=== PATIENT | female | born 2005 | race Caucasian/White ===

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

== ENCOUNTER 2024-11-05 19:28 | Emergency (ER) | payer OTHER, SELFPAY ==
--- OUTSIDE RECORDS SUMMARY | 2024-11-05 19:30 | XMS_ITS | Continuity of Care Document ---
Author Organization [facility]. If a dditional information is needed, contact Health Information Management at [phone] [place] [address] Phone Care Team Providers Care Primary Substance Abuse Counselor Name Role Phone Unavailable Unavailable Unavailable Unavailable Unavailable Unavailable Unavailable Unavailable Unavailable Problems Generalized abdominal pain Onset:21-Mar-2023 Comments:Onset Date: [id number] Abdominal pain Onset:18-Mar-2023 [id number] Allergies and Adverse Reactions ibuprofen(Allergy) Onset: 18-Mar-2023 Reaction:HIVES Social History Smoking Status Never smoked tobacco Recorded: 18-Mar-2023
--- OUTSIDE RECORDS SUMMARY | 2024-11-05 19:30 | XMS_ITS | Referral Summary ---
Author Organization [facility] osp[facility] Address [address] [place] [address] Care Team Providers Care Plasma Cutting Machine Operator Name Role Phone Isabella Peace NP Primary Care Provider [phone] Aleyda Hubbard [facility] Unavailable [phone] Encounters Date Type Department Care Team Description 09/28/2024 Plan of Care Documentation [facility] [place] [id number] 09/28/2024 1:00 PM CDT Therapy [facility] [place] [address] Alex Mcgowan, SHERLY Acute bilateral low back pain with left-sided sciatica 09/28/2024 11:00 AM CDT Office Visit [facility] [address] [place] [address] Ila Haynes DO Encounter for annual routine gynecological examination (Primary Dx); Need for HPV vaccination; Encounter for counseling regarding contraception 09/15/2024 Orders Only [facility] Primary Care at [address] [place] [id number] Isabella Peace NP Acute bilateral low back pain with left-sided sciatica (Primary Dx) 09/14/2024 Orders Only [facility] Primary Care at [address] [place] [phone] Isabella Peace, JUAN M Acute bilateral low back pain with left-sided sciatica (Primary Dx) 09/14/2024 10:00 AM CAN MAKER Office Visit [facility] at [address] [place] [address] Isabella Peace NP Generalized anxiety disorder (Primary Dx); Mild episode of recurrent major depressive disorder; Acute bilateral low back pain with left-sided sciatica 08/12/2024 9:30 AM CAN MAKER Office Visit [facility] at [address] [place] [address] Isabella Peace NP Generalized anxiety disorder (Primary Dx); Mild episode of recurrent major depressive disorder; Migraine without aura and without status migrainosus, not intractable from Last 3 Months Allergies Active Allergy Reactions Criticality Noted Date Comments Ibuprofen Hives Medium 07/23/2019 Pt mom states Ibuprofen 800mg+ causes hives. Lactose Nausea only Low 05/26/2023 Medications ondansetron ODT (ZOFRAN-ODT) 4 mg disintegrating tabletIndications: Nausea and vomiting, unspecified vomiting type DISSOLVE ONE TABLET ON TONGUE IN MOUTH EVERY 8 HOURS NEEDED FOR NAUSEA OR VOMITING 21 tablet 1 10/21/19 24 Active Additional Information Patient not taking.Reported on 09/28/2024 cholecalciferol (VITAMIN D-3) 5,000 unit tablet Take 1 tablet (5,000 Units total) by mouth daily Active medroxyPROGESTERon e 150 mg/mL injection INJECT 1 ML INTO THE MUSCLE INSTRUCTED EVERY THREE MONTHS 1 mL 2 05/20/20 24 Active cyclobenzaprine (FLEXERIL) 5 mg tabletIndications: Acute bilateral low back pain with left-sided sciatica Take 1 tablet (5 mg total) by mouth nightly as needed for muscle spasms (back pain) 30 tablet 09/15/19 25 Active Additional Information Patient not taking.Reported on 09/28/[address] (CYMBALTA) 30 mg capsuleIndications :Generalized anxiety disorder,Mild episode of recurrent major depressive disorder Take 1 capsule (30 mg total) by mouth daily 60 capsule 09/15/19 25 Active Additional Information Patient not taking.Reported on 09/28/2024 medroxyPROGESTERon e (DEPO-PROVERA) 150 mg/mL injection Inject 1 mL (150 mg total) into the muscle as instructed every 3 (three) months 1 mL 3 09/29/19 Active rizatriptan (MAXALT) 10 mg tabletIndications: Migraine without aura and without status migrainosus, not intractable TAKE ONE TABLET BY MOUTH ONCE DAILY NEEDED FOR MIGRAINE, MAY REPEAT IN 2 HOURS IF UNRESOLVED. DO NOT EXCEED 3 TABLETS (30 MG) IN 24 HOURS 30 tablet 1 10/05/19 Active rizatriptan (MAXALT) 10 mg tabletIndications: Migraine Take 1 tablet (10 mg total) by mouth once as needed for migraine May repeat in 2 hours if unresolved. Do not exceed 30 mg in 24 hours. 30 tablet 10/05/19 Active Active Problems Problem Noted Date Diagnosed Date Acute bilateral low back pain with left-sided sc iatica 09/14/2024 Assessment & Plan (09/14/2024 10:42 AM CAN MAKER): -Acute, new -Start on Flexeril 5 mg nightly as needed -May take over the counter ibuprofen 200 mg 2-3 tablets 3 times daily as needed for pain and tylenol 500 mg 2 tablets 3 times daily as needed for pain -Recommend stretching exercises -Referral sent to physical therapy -If this worsens or does not improve, will order x-rays -Follow up in 6 weeks or sooner as needed BMI 21.0-21.9, adult 12/21/2023 Assessment & Plan (12/21/2023 11:10 AM CDT): Wt Readings from Last 3 Encounters: 12/21/23 61.7 kg (136 lb 1.6 oz) (65%, Z= 0.39)* 11/24/23 63 kg (139 lb) (69%, Z= 0.51)* 11/06/23 64 kg (141 lb) (72%, Z= 0.59)* * Growth percentiles are based on CDC (Girls, 2-20 Years) data. Body mass index is 21.31 kg/m . -Stable, at goal of <30 bmi -Discussed recommendations for exercise at least 30 minutes moderate to vigorous exercise as tolerated most days of the week. (minimum 150 minutes weekly) -Discussed importance of well-balanced diet. Vitamin D deficiency 11/06/2023 Assessment & Plan (11/06/2023 2:09 PM CDT): -chronic, stable -Discussed/ordered labs -continue on vitamin D3 5000 units daily Nausea and vomiting 05/26/2023 Assessment & Plan (07/10/2023 12:47 PM CAN MAKER): -improving, but not at goal- patient reports she is still nauseous -possibly related to sertraline. Stop sertraline 50 mg daily and start escitalopram 5 mg daily for depression and anxiety -recommend patient follow up with GI -continue on Zofran 4 mg daily as needed Assessment & Plan (05/26/2023 1:01 PM CAN MAKER): For the past 3 weeks with waking up feeling nauseated with decreased appetite, constant throughout the day, lost about 5-10 lbs over the past 3 weeks ago due to not being to eat. Takes zofran as needed which helps No reflux or heartburn, no dysphagia or odynophagia New constipation as well with straining and hard stools. not currently taking anything. Feels like after bm, nausea gets better Difficulty sleeping Takes ibuprofen as needed No known family history of colon cancer, liver disease, inflammatory bowel disease, or other GI pathologies Occasional marijuana use, vapes, no ETOH use Labs from 05/25/2023 showed mildly decreased potassium 3.1, total protein 6.3, TSH low 0.27 with normal free T4, normal CBC had pelvic US that was normal. No abdominal imaging or prior endoscopies Plan Given concurrent significant weight loss, will schedule EGD to evaluate for PUD, gastritis, esophagitis, EoE. If all normal then could have functional disease such as Gp, functional n/v, centrally mediated n/v, psychogenic, or cannabinoid hyperemesis syndrome. Constipation might also contribute to her symptoms if she is chronically backed up with stool Start metamucil daily for constipation, if no relief then add miralax Continue zofran as needed Abnormal weight loss 05/26/2023 Assessment & Plan (05/26/2023 12:57 PM CAN MAKER): Lost about 5-10 lb over the past 3 weeks due to decreased appetite and nausea vomiting. We will plan for EGD for further evaluation of peptic ulcer disease gastritis, esophagitis. If all negative then could have possible functional disease such as gastroparesis or cannabinoid hyperemesis Hypokalemia 05/26/2023 Assessment & Plan (08/26/2023 12:00 PM CAN MAKER): -improving, but not at goal -repeat potassium level in 1 week Assessment & Plan (05/26/2023 1:03 PM CAN MAKER): Likely from dehydration and decreased oral intake, supplement per ordering physician Generalized abdominal pain 03/18/2023 Overview (12/21/2023): Onset Date: [id number] Bilateral lower abdominal cramping 01/29/2023 Assessment & Plan (01/29/2023 4:34 AM CDT): Acute problem- new problem with onset about 4 weeks Has been taken off control and implant removed- this is apprenticeship representative of menstrual cramping second to patient not having return of her menses post nexplanon implant removal. Recommend heating pad at low setting prn Follow up with per diem clerk if cramping worsens Migraine without aura and wi thout status migrainosus, not intractable 01/27/2023 Assessment & Plan (08/12/2024 10:09 AM CAN MAKER): -chronic, stable -continue on rizatriptan 10 mg once as needed for migraines -continue seeing Neurology Discussed avoiding all caffeine: no soda, tea, coffee, chocolate; no wine; no sharp cheeses; no processed meats like hot dogs or bologna; no MSG as found in turkish food; no more than 1/2 banana a day; no artificial sweeteners; fresh bread (less than 24 hours old) Avoid using excedrin, tylenol, ibuprofen or aleve more than twice a week or else you can cause medication overuse/rebound headaches. You may be causing the headaches with the medications you are taking to get rid of them. Be sure to push lots of water as dehydration is a big cause of headaches. Assessment & Plan (12/21/2023 11:36 AM CDT): -chronic, stable -patient currently takes rizatriptan as needed -patient reports having a couple of migraine headache monthly -today patient reporting she is not currently experiencing a headache -encourage patient to use p.r.n. migraine medication if needs so -refill of rizatriptan provided -continue current therapy Assessment & Plan (11/06/2023 7:22 AM CDT): -chronic, stable -continue on rizatriptan 10 mg once as needed for migraines -continue seeing Neurology Discussed avoiding all caffeine: no soda, tea, coffee, chocolate; no wine; no sharp cheeses; no processed meats like hot dogs or bologna; no MSG as found in turkish food; no more than 1/2 banana a day; no artificial sweeteners; fresh bread (less than 24 hours old) Avoid using excedrin, tylenol, ibuprofen or aleve more than twice a week or else you can cause medication overuse/rebound headaches. You may be causing the headaches with the medications you are taking to get rid of them. Be sure to push lots of water as dehydration is a big cause of headaches. Assessment & Plan (07/10/2023 12:47 PM CAN MAKER): -chronic, stable -continue on rizatriptan 10 mg once as needed for migraines -continue seeing Neurology Discussed avoiding all caffeine: no soda, tea, coffee, chocolate; no wine; no sharp cheeses; no processed meats like hot dogs or bologna; no MSG as found in turkish food; no more than 1/2 banana a day; no artificial sweeteners; fresh bread (less than 24 hours old) Avoid using excedrin, tylenol, ibuprofen or aleve more than twice a week or else you can cause medication overuse/rebound headaches. You may be causing the headaches with the medications you are taking to get rid of them. Be sure to push lots of water as dehydration is a big cause of headaches. Assessment & Plan (02/27/2023 11:19 AM CDT): -chronic, improving -continue on rizatriptan 10 mg once as needed for migraines -advised patient to keep appointment to establish care with Neurology on 03/26/2023 Discussed avoiding all caffeine: no soda, tea, coffee, chocolate; no wine; no sharp cheeses; no processed meats like hot dogs or bologna; no MSG as found in turkish food; no more than 1/2 banana a day; no artificial sweeteners; fresh bread (less than 24 hours old) Avoid using excedrin, tylenol, ibuprofen or aleve more than twice a week or else you can cause medication overuse/rebound headaches. You may be causing the headaches with the medications you are taking to get rid of them. Be sure to push lots of water as dehydration is a big cause of headaches. Assessment & Plan (01/30/2023 11:00 AM CDT): -chronic, improving -continue on rizatriptan 10 mg once as needed for migraines -referral placed to Dr. Miller [facility] -follow up in 4 weeks Assessment & Plan (01/29/2023 4:26 AM CDT): Acute problem- new problem with onset of 2 weeks, worsening over last week Trial Rizatriptan 10 mg 1 tablet at onset of headache, may repeat in 2 hours if no improvement- do not exceed 30 mg in 24 hour period Discussed avoiding all caffeine: no soda, tea, coffee, chocolate; no wine; no sharp cheeses; no processed meats like hot dogs or bologna; no MSG as found in turkish food; no more than 1/2 banana a day; no artificial sweeteners; fresh bread (less than 24 hours old) Avoid using tylenol, ibuprofen or aleve more than twice a week or else you can cause medication overuse/rebound headaches. You may be causing the headaches with the medications you are taking to get rid of them. Be sure to push lots of water as dehydration is a big cause of headaches. Contraceptive management 11/17/2022 Assessment & Plan (11/24/2023 12:22 PM CDT): Highly encouraged patient to continue supplementing calcium and vitamin-D daily. Patient aware long-term use of Depo-Provera not recommended. Patient may need to have DEXA scans on a routine basis to monitor bone mineral density. Patient verbalizes all understanding and wishes to proceed with Depo-Provera as her control method. - Refill on Depo Provera sent to pharmacy. Patient to RTC for next injection due 12/14/23 - 12/28/23. Assessment & Plan (07/08/2023 3:17 PM CAN MAKER): Counseling and education given on Depo-Provera including risks and side effects. Informed patient that Depo-Provera has been associated with a decrease in bone mineral mass known as osteopenia. Highly encouraged patient to supplement diet with calcium and vitamin-D daily - list of [id number] calcium supplements given. Patient should try to eat a diet that contains calcium rich foods. Patient aware long-term use of Depo-Provera not recommended. Patient may need to have DEXA scans on a routine basis to monitor bone mineral density. Patient verbalizes all understanding and wishes to proceed with Depo-Provera as her control method. - Plan to restart Depo-Provera. She can return this week for nurse visit to receive first injection. If unable to RTC this week, will have to wait for next menses. - Patient aware I will prescribe for up to 1 year then will have to discuss other control method or possibility of having DEXA scan to check bone mineral density at that time. Assessment & Plan (06/09/2023 1:32 PM CAN MAKER): Discussed options such as coming off hormonal contraception x 3-4 months to see if sxs of nausea, hot flashes, increased pelvic pain/cramping can be directly associated with BCM. Can also try a lower dose combined contraceptive method such as Lo Loestrin or the Nuva Ring. Can consider progestin only method as well. After a lengthy discussion, patient desires to try a progestin only pill - samples x 2 of Slynd given w/ usage instructions. Assessment & Plan (02/26/2023 12:27 PM CDT): Plan to start low dose JANKI for cycle management and BCM. Will try a 20 mcg pill to see if less nausea noted - encouraged to take at night or eat with dose if experiences nausea. Allow 3-4 months for cycle regulation. BUM x 1 month for effective BCM. Assessment & Plan (11/17/2022 11:45 AM CDT): Discussed multiple methods including pills, patch, and Nexplanon. She would like to try the combination patch. Risks, benefits, warning signs, and proper use reviewed. She will call with any questions or concerns. Mild episode of recurrent major depressive disor nelson 11/03/2022 Overview (12/21/2023): patient has tried Prozac (unknown why she stopped it), sertraline (which cause nausea), Lamictal, and buspirone in the past. Patient did not tolerate buspirone. Assessment & Plan (09/14/2024 10:41 AM CAN MAKER): -chronic, improving, but not at goal Patient has tried the following medications in the past and was unable to tolerate them: -Lexapro blunted her options -Prozac made her cry easily -Sertraline caused nausea -Lamictal (unknown why this was stopped) -Buspirone caused heart racing, shaking, confusion, and made her feel overwhelmed -Venlafaxine did not help with her anxiety -Increase to duloxetine DR 30 mg daily. -Follow up in 6 weeks or sooner as needed Patient reiterated no suicidal thoughts at this time; take medication as directed; contact 911 and go to the ER if becomes suicidal; discussed side effects of medication with patient; encouraged healthy diet and exericise; encouraged patient to see a counselor Assessment & Plan (08/12/2024 10:09 AM CAN MAKER): -chronic, not at goal Patient has tried the following medications in the past and was unable to tolerate them: -Lexapro blunted her options -Prozac made her cry easily -Sertraline caused nausea -Lamictal (unknown why this was stopped) -Buspirone caused heart racing, shaking, confusion, and made her feel overwhelmed -stop venlafaxine XR 37.5 mg daily -start on duloxetine DR 20 mg daily. Advised patient we will likely need to increase this dosage, however given her reaction to medications in the past, a low dose was started -Follow up in 4 weeks or sooner as needed Patient reiterated no suicidal thoughts at this time; take medication as directed; contact 911 and go to the ER if becomes suicidal; discussed side effects of medication with patient; encouraged healthy diet and exericise; encouraged patient to see a counselor Assessment & Plan (12/21/2023 11:32 AM CDT): -chronic, improved -patient currently takes Effexor 37.5 mg -previously unable to tolerate Lexapro, Prozac, Lamictal, BuSpar, sertraline -patient reports since starting the Effexor she is feeling much better and states she believes she has on an appropriate dose at this time -patient denies any worsening of depressed mood, thoughts of harming herself or others, or worsening anxiety -refill of Effexor -continue current therapy Assessment & Plan (11/06/2023 2:08 PM CDT): -chronic, not at goal- Lexapro has been blunting her emotions and making her feel on edge -patient has tried Prozac (unknown why she stopped it), sertraline (which cause nausea), Lamictal, and buspirone in the past. Patient did not tolerate buspirone. -stop escitalopram 5 mg daily. -start on fluoxetine 10 mg daily. Discussed with patient if this medication does not help, we will try medication from the SNRI drug class -recommend using a light therapy sun lamp to use during the winter time to help with her depression Patient reiterated no suicidal thoughts at this time; take medication as directed; contact 911 and go to the ER if becomes suicidal; discussed side effects of medication with patient; encouraged healthy diet and exericise; encouraged patient to see a counselor Assessment & Plan (08/26/2023 12:00 PM CAN MAKER): -chronic, improving -patient has tried Prozac (unknown why she stopped it), sertraline (which cause nausea), Lamictal, and buspirone in the past. Patient did not tolerate buspirone. -continue escitalopram 5 mg daily. -recommend using a light therapy sun lamp to use during the winter time to help with her depression -follow up in 3 months or sooner as needed Patient reiterated no suicidal thoughts at this time; take medication as directed; contact 911 and go to the ER if becomes suicidal; discussed side effects of medication with patient; encouraged healthy diet and exericise; encouraged patient to see a counselor Assessment & Plan (07/10/2023 12:46 PM CAN MAKER): Patient reiterated no suicidal thoughts at this time; take medication as directed; contact 911 and go to the ER if becomes suicidal; discussed side effects of medication with patient; encouraged healthy diet and exericise; encouraged patient to see a counselor -chronic, not at/near goal -patient has tried Prozac (unknown why she stopped it), sertraline (which cause nausea), Lamictal, and buspirone in the past. Patient did not tolerate buspirone. -stop sertraline 50 mg daily. Since patient has not been taking this regularly and she was on a low dose, we do not need a wean off it. -start escitalopram 5 mg daily. -recommend patient purchase a light therapy sun lamp to use during the winter time to help with her depression -follow up in 4 weeks or sooner as needed Assessment & Plan (02/27/2023 11:19 AM CDT): Patient reiterated no suicidal thoughts at this time; take medication as directed; contact 911 and go to the ER if becomes suicidal; discussed side effects of medication with patient; encouraged healthy diet and exericise; encouraged patient to see a counselor -chronic, improving -patient has tried Prozac, sertraline, Lamictal, and buspirone in the past. Patient did not tolerate buspirone. -continue on sertraline 50 mg daily. Patient would like to stay on this dosage for now. -recommend staying off social media that increases her anxiety -follow up in 2 weeks or sooner as needed Assessment & Plan (01/30/2023 10:59 AM CDT): Patient reiterated no suicidal thoughts at this time; take medication as directed; contact 911 and go to the ER if becomes suicidal; discussed side effects of medication with patient; encouraged healthy diet and exericise; encouraged patient to see a counselor -chronic, improving, but not at goal -patient has tried Prozac, sertraline, Lamictal, and buspirone in the past. Patient did not tolerate buspirone -increase to sertraline 50 mg daily -stop buspirone. -recommend seeing a counselor. -recommend staying off social media that causes anxiety -follow up in 4 weeks Assessment & Plan (01/29/2023 4:29 AM CDT): Chronic problem- controlled with current regimen Continue sertraline 25 mg daily Stopped Buspirone-did not like the way it made her feel Patient reiterated no suicidal thoughts at this time; take medication as directed; contact 911 and go to the ER if becomes suicidal; discussed side effects of medication with patient; encouraged healthy diet and exericise; encouraged patient to see a counselor Assessment & Plan (12/18/2022 11:27 AM CDT): Patient reiterated no suicidal thoughts at this time; take medication as directed; contact 911 and go to the ER if becomes suicidal; discussed side effects of medication with patient; encouraged healthy diet and exericise; encouraged patient to see a counselor HPI: Condition is not at/near goal -Patient has tried Prozac, sertraline, and Lamictal in the past. Reports the sertraline was seen most helpful. -patient reports having a good family support system A&P: Discussed/ordered labs, encouraged healthy, low carbohydrate lifestyle and at least 150min/week of exercise. -start on sertraline 25 mg daily and buspirone 5 mg 2 times daily as needed for anxiety -recommend patient see a counselor. Patient reports she can talk with her breakdown mill operator Vinod for counseling. -recommend staying off social media that causes increased anxiety, such snapchat and tictok -follow up in 6 weeks Assessment & Plan (11/03/2022 11:25 AM CDT): Patient reiterated no suicidal thoughts at this time; take medication as directed; contact 911 and go to the ER if becomes suicidal; encouraged healthy diet and exericise; encouraged patient to see a counselor HPI: Condition is at goal Patient used to take Lamictal and sertraline, but she weaned herself off of these and is doing well. A&P: Discussed/ordered labs, encouraged healthy, low carbohydrate lifestyle and at least 150min/week of exercise. Generalized anxiety disorder 11/03/2022 Assessment & Plan (09/14/2024 10:41 AM CAN MAKER): -chronic, improving, but not at goal Patient has tried the following medications in the past and was unable to tolerate them: -Lexapro blunted her options -Prozac made her cry easily -Sertraline caused nausea -Lamictal (unknown why this was stopped) -Buspirone caused heart racing, shaking, confusion, and made her feel overwhelmed -Venlafaxine did not help with her anxiety -Increase to duloxetine DR 30 mg daily. -Follow up in 6 weeks or sooner as needed Patient reiterated no suicidal thoughts at this time; take medication as directed; contact 911 and go to the ER if becomes suicidal; discussed side effects of medication with patient; encouraged healthy diet and exericise; encouraged patient to see a counselor Assessment & Plan (08/12/2024 10:09 AM CAN MAKER): -chronic, not at goal Patient has tried the following medications in the past and was unable to tolerate them: -Lexapro blunted her options -Prozac made her cry easily -Sertraline caused nausea -Lamictal (unknown why this was stopped) -Buspirone caused heart racing, shaking, confusion, and made her feel overwhelmed -stop venlafaxine XR 37.5 mg daily -start on duloxetine DR 20 mg daily. Advised patient we will likely need to increase this dosage, however given her reaction to medications in the past, a low dose was started -Follow up in 4 weeks or sooner as needed Patient reiterated no suicidal thoughts at this time; take medication as directed; contact 911 and go to the ER if becomes suicidal; discussed side effects of medication with patient; encouraged healthy diet and exericise; encouraged patient to see a counselor Assessment & Plan (12/21/2023 11:32 AM CDT): -chronic, improved -patient currently takes Effexor 37.5 mg -previously unable to tolerate Lexapro, Prozac, Lamictal, BuSpar, sertraline -patient reports since starting the Effexor she is feeling much better and states she believes she has on an appropriate dose at this time -patient denies any worsening of depressed mood, thoughts of harming herself or others, or worsening anxiety -refill of Effexor -continue current therapy Assessment & Plan (11/06/2023 2:08 PM CDT): -chronic, not at goal- Lexapro has been blunting her emotions and making her feel on edge -patient has tried Prozac (unknown why she stopped it), sertraline (which cause nausea), Lamictal, and buspirone in the past. Patient did not tolerate buspirone. -stop escitalopram 5 mg daily. -start on fluoxetine 10 mg daily. Discussed with patient if this medication does not help, we will try medication from the SNRI drug class -recommend using a light therapy sun lamp to use during the winter time to help with her depression Patient reiterated no suicidal thoughts at this time; take medication as directed; contact 911 and go to the ER if becomes suicidal; discussed side effects of medication with patient; encouraged healthy diet and exericise; encouraged patient to see a counselor Assessment & Plan (08/26/2023 11:59 AM CAN MAKER): -chronic, improving -patient has tried Prozac (unknown why she stopped it), sertraline (which cause nausea), Lamictal, and buspirone in the past. Patient did not tolerate buspirone. -continue escitalopram 5 mg daily. -recommend using a light therapy sun lamp to use during the winter time to help with her depression -follow up in 3 months or sooner as needed Patient reiterated no suicidal thoughts at this time; take medication as directed; contact 911 and go to the ER if becomes suicidal; discussed side effects of medication with patient; encouraged healthy diet and exericise; encouraged patient to see a counselor Assessment & Plan (07/10/2023 12:45 PM CAN MAKER): Patient reiterated no suicidal thoughts at this time; take medication as directed; contact 911 and go to the ER if becomes suicidal; discussed side effects of medication with patient; encouraged healthy diet and exericise; encouraged patient to see a counselor -chronic, not at/near goal -patient has tried Prozac (unknown why she stopped it), sertraline (which cause nausea), Lamictal, and buspirone in the past. Patient did not tolerate buspirone. -stop sertraline 50 mg daily. Since patient has not been taking this regularly and she was on a low dose, we do not need a wean off it. -start escitalopram 5 mg daily. -recommend patient purchase a light therapy sun lamp to use during the winter time to help with her depression -follow up in 4 weeks or sooner as needed Assessment & Plan (02/27/2023 11:18 AM CDT): Patient reiterated no suicidal thoughts at this time; take medication as directed; contact 911 and go to the ER if becomes suicidal; discussed side effects of medication with patient; encouraged healthy diet and exericise; encouraged patient to see a counselor -chronic, improving -patient has tried Prozac, sertraline, Lamictal, and buspirone in the past. Patient did not tolerate buspirone. -continue on sertraline 50 mg daily. Patient would like to stay on this dosage for now. -recommend staying off social media that increases her anxiety -follow up in 2 weeks or sooner as needed Assessment & Plan (01/30/2023 10:58 AM CDT): Patient reiterated no suicidal thoughts at this time; take medication as directed; contact 911 and go to the ER if becomes suicidal; discussed side effects of medication with patient; encouraged healthy diet and exericise; encouraged patient to see a counselor -chronic, improving, but not at goal -patient has tried Prozac, sertraline, Lamictal, and buspirone in the past. Patient did not tolerate buspirone -increase to sertraline 50 mg daily -stop buspirone. -recommend seeing a counselor. -recommend staying off social media that causes anxiety -follow up in 4 weeks Assessment & Plan (12/18/2022 11:27 AM CDT): Patient reiterated no suicidal thoughts at this time; take medication as directed; contact 911 and go to the ER if becomes suicidal; discussed side effects of medication with patient; encouraged healthy diet and exericise; encouraged patient to see a counselor HPI: Condition is not at/near goal -Patient has tried Prozac, sertraline, and Lamictal in the past. Reports the sertraline has been the most helpful. -patient reports having a good family support system A&P: Discussed/ordered labs, encouraged healthy, low carbohydrate lifestyle and at least 150min/week of exercise. -start on sertraline 25 mg daily and buspirone 5 mg 2 times daily as needed for anxiety -recommend patient see a counselor. Patient reports she can talk with her breakdown mill operator Vinod for counseling. -recommend staying off social media that causes increased anxiety, such snapchat and tictok -follow up in 6 weeks Assessment & Plan (11/03/2022 11:25 AM CDT): Patient reiterated no suicidal thoughts at this time; take medication as directed; contact 911 and go to the ER if becomes suicidal; encouraged healthy diet and exericise; encouraged patient to see a counselor HPI: Condition is at goal Patient used to take Lamictal and sertraline, but she weaned herself off of these and is doing well. A&P: Discussed/ordered labs, encouraged healthy, low carbohydrate lifestyle and at least 150min/week of exercise. Vapes nicotine containing substance 11/03/2022 Assessment & Plan (11/06/2023 7:22 AM CDT): Recommend cessation of vaping Assessment & Plan (01/30/2023 7:04 AM CDT): Recommend cessation of vaping Assessment & Plan (01/29/2023 4:30 AM CDT): Chronic problem Encouraged cessation of vaping- we discussed cessation of vaping/nicotine for 3 minutes. Patient aware of risks with continued use Assessment & Plan (12/18/2022 7:09 AM CDT): Recommend cessation of vaping Assessment & Plan (11/03/2022 11:28 AM CDT): Patient aware of risks of nicotine. Patient does not have interest in quitting at this time. Recommend cessation of vaping. Marijuana use 11/03/2022 Assessment & Plan (01/30/2023 7:04 AM CDT): Recommended cessation of smoking marijuana Assessment & Plan (12/18/2022 7:09 AM CDT): Recommended cessation of smoking marijuana Assessment & Plan (11/03/2022 11:29 AM CDT): Patient aware of risks of marijuana use Patient does not have interest in quitting at this time Recommend cessation of smoking marijuana. Resolved Problems Problem Noted Date Diagnosed Date Resolved Date Encounter for surveillance o f transdermal patch hormonal contraceptive device 02/26/202302/10 BMI 26.0-26.9,adult 12/18/2022 12/19/19 23 Assessment & Plan (12/18/2022 7:09 AM CDT): HPI: Condition is stable goal BMI <30 A&P: Healthy, high-protein, lower carbohydrate, lower fat lifestyle and exercise for 150min/week recommended Immunizations Immunization Administration Dates Next Due DTaP / HiB / IPV 2004 DTaP 5 Pertussis 07/31/2009,02/06/2005, 5 HPV, Quadrivalent 01/22/2016,09/19/2015,01/03/20 15 HPV9 09/28/2024 Hep A, Pediatric 08/08/2011,08/09/2010 Hep B, Adolescent or Pediatric 02/06/2005,2004,2004 Hib (PRP-T) 11/17/2005,02/06/2005,2004 IPV 07/31/2009,02/06/2005,2004 Influenza, Quadrivalent, Spl it, Intramuscular 05/09/2019 Influenza, Quadrivalent, Spl it, Preservative Free, Intramuscular 07/10/2023,05/27/2021,05/14/2017,03/28,03/28/2015,04/13/2014 Influenza, Trivalent, Preser vative Free, Intramuscular 04/29/2013,04/19/2012,04/21/2011 Influenza, Unspecified 10/10/2022(Deferred: Natasha ent Refused) MMR 08/04/2005 MMRV 07/31/2009 Meningococcal B, Recombinant (Trumenba) 01/18/2021 Meningococcal MCV4P (Menactra) 01/18/2021,2015 Pneumococcal Conjugate PCV 13 11/17/2005 ,02/06/2005,2004,09/19 Tdap 01/22/2016 Varicella 03/08/2008 Social History Tobacco Use Types Packs/Day Years Used Date Smoking Tobacco: Some Days Vaping Started: 07/2021 Smokeless Tobacco: Never Tobacco Cessation:Ready to Q uit: Not Asked; Counseling Given: Not Answered Alcohol Use Standard Drinks/Week Comments No 0 (1 standard drink = 0.6 oz pur e alcohol) Humiliation, Afraid, Rape, and Kick questionnair e Answer Date Recorded Within the last year, have y ou been afraid of your partner or ex-partner? No 11/17/2022 Within the last year, have y ou been humiliated or emotionally abused in other ways by your partner or ex-partner? No Within the last year, have y ou been kicked, hit, slapped, or otherwise physically hurt by your partner or ex-partner? No 11/17/2022 Within the last year, have y ou been raped or forced to have any kind of sexual activity by your partner or ex-partner? No 11/17/2022 AUDIT-C Answer Date Recorded Q1: How often do you have a drink containing alcohol? Never 09/14/2024 Q2: How many drinks containi ng alcohol do you have on a typical day when you are drinking? Patient does not drink Q3: How often do you have si x or more drinks on one occasion? Never 09/14/2024 PHQ-2 Answer Date Recorded PHQ-2 Total Score (If total score is 3 or more points, staff should administer the PHQ-9) 1 09/14/2024 Personal Safety Answer Date Recorded Have you ever been in or are you currently in a harmful physical or emotional relationship or is someone making you feel afraid or unsafe? Denies 06/22/2023 Comments No Sex and Gender Information Value Date Recorded Sex Assigned at Not on file Legal Sex Female 7:40 PM CAN MAKER Gender Identity Not on file Sexual Orientation Not on file Occupation Industry Job Start Date Job End Date Not on file Not on file Not on file Not on file Last Filed Vital Signs Vital Sign Reading Time Taken Comments Blood Pressure 108/60 09/28/2024 10:58 AM CDT Pulse 74 09/14/2024 9:43 AM CAN MAKER Temperature 36.5 C (97.7 F) 09/14/2024 9:43 AM CAN MAKER Respiratory Rate 14 09/14/2024 9:43 AM CAN MAKER Oxygen Saturation 99% 09/14/2024 9:43 AM CAN MAKER Inhaled Oxygen Concentration - - Weight 53.1 kg (117 lb) 09/28/2024 10:58 AM CDT Height 170.2 cm (5' 7 ) 09/28/2024 10:58 AM CDT Body Mass Index 18.32 09/28/2024 10:58 AM CDT Plan of Treatment Not on file Procedures Procedure Name Priority Date/Time Associated Diagnosis Comments N. GONORRHOEAE/C. TRACHOMATIS AMPLIFICATION Routine 11/24/2023 11:30 AM CDT from Last 3 Months or Most Recently Relevant to Health Maintenance Results * N. gonorrhoeae/C. trachomatis Amplification Urine (11/24/2023 11:30 AM CDT) C. trachomatis Not Detected [facility] Comment:Testing performed by : [facility], [address] [place]., [address] N. gonorrhoeae Not Detected [facility] ([facility]) Comment: Interpretive Data This assay detects Chlamydia trachomatis and Neisseria gonorrhoeae by nucleic acid amplification testing (NAAT). This assay has been cleared by the [place] Food and Drug administration. The performance characteristics of this test have been verified by the [facility] Molecular Infectious Disease laboratory. The performance characteristics of this test have not been evaluated in individuals less than 14 years of age. Current Interpretive Data was last revised on 2023. Testing performed by: [facility], [address] [place]., [address] Urine 11/24/2023 11:3 0 AM CDT 11/24/2023 4:48 PM CDT Maggie Blanc NP LAB MICROBIOLOGY - GENERAL ORDER NURA Final Result [facility] ([facility]) [address] [facility] [place] [address] [facility] from Last 3 Months or Most Recently Relevant to Health Maintenance Insurance [facility] Advance Directives For more information, please contact: [phone] * Full Code (Latest Code Status on File) Date Activated Date Inactivated Comments 06/22/2023 1:20 PM 06/22/2023 8:00 PM Care Teams Plasma Cutting Machine Operator Relationship Specialty Start Date End Date Isabella Peace NP [address] [place] [address] PCP - General Family Medicine 11/03/22 Aleyda Hubbard, [facility] [address] [address] 03/27/23
--- OUTSIDE RECORDS SUMMARY | 2024-11-05 19:30 | XMS_ITS | Clinical Summary ---
Author Organization [facility] Address [address] [place] [address] Phone Care Team Providers Care Pickle Cutter Name Role Phone Isabella Peace APRN, ROD PLACER Primary Care Provi nelson Aleyda Hubbard APRN, CYBER SECURITY INSTRUCTOR Unavailable [phone] Allergies Active Allergy Reactions Criticality Noted Date Comments Ibuprofen Hives 02/04/2023 Medications sertraline (ZOLOFT) 50 MG Tablet Take 50 mg by mouth daily. Active rizatriptan (MAXALT-LENS COATER) 10 MG TABLET DISPERSIBLE Take 10 mg by mouth once as needed. Active Escitalopram Oxalate (Lexapro) 5 MG Tablet Take 5 mg by mouth daily. Active Active Problems No known active problems Family History Medical History Relation Name Comments Hypertension Mother Hypothyroidism Mother Relation Name Status Comments Mother Alive Social History Tobacco Use Types Packs/Day Years Used Date Smoking Tobacco: Never Smokeless Tobacco: Never Tobacco Cessation:Counseling Given: Not Answered Alcohol Use Standard Drinks/Week Comments No 0 (1 standard drink = 0.6 oz pur e alcohol) Comments No Sex and Gender Information Value Date Recorded Sex Assigned at Female 07/10/2023 4:05 PM SENIOR TECHNICAL WRITER Legal Sex Female 11:23 PM CDT Gender Identity Female 07/10/2023 4:05 PM SENIOR TECHNICAL WRITER Sexual Orientation Straight 07/10/2023 4: 05 PM SENIOR TECHNICAL WRITER Last Filed Vital Signs Vital Sign Reading Time Taken Comments Blood Pressure 112/64 07/10/2023 3:07 PM SENIOR TECHNICAL WRITER Pulse 54 07/10/2023 3:07 PM SENIOR TECHNICAL WRITER Temperature 36.2 C (97.1 F) 07/10/2023 3:07 PM SENIOR TECHNICAL WRITER Respiratory Rate 18 07/10/2023 3:07 PM SENIOR TECHNICAL WRITER Oxygen Saturation 97% 07/10/2023 3:07 PM SENIOR TECHNICAL WRITER Inhaled Oxygen Concentration - - Weight 66.7 kg (147 lb) 07/10/2023 3:07 PM SENIOR TECHNICAL WRITER Height 172.7 cm (5' 8 ) 07/10/2023 3:07 PM SENIOR TECHNICAL WRITER Body Mass Index 22.35 07/10/2023 3:07 PM SENIOR TECHNICAL WRITER Plan of Treatment Health Maintenance Due Date Last Done Comments Hepatitis C Virus (HCV) Screening 2004 Meningococcal B Immunization (2 of 2 - Trumenba SCDM 2-dose series) 07/21/2021 01/18/2021 Influenza Immunization (#1) 03/13/202406/13, 05/27/2021, 05/09/2019, Additional history exists SARS-COV-2 Immunization ( - 2023- season) 2024 Respiratory Syncytial Virus (RSV) Immunization (Adult) (1 - 1-dose 75+ series) 2079 Hepatitis B Immunization Completed 005, 2004, 2004 Pneumococcal Immunization Combined Completed 11/17/2005, 02/06/2005, 2004, Additional history exists Measles Mumps Rubella (MMR) Immunization Discontinued 07/31/2009, 08/04/2005 Polio (IPV) Immunization Discontinued 010, 02/06/2005, 2004, Additional history exists Varicella Immunization Discontinued 07/31/2009, 2007 Hepatitis A Immunization Discontinued 08/08/2011, 07/14 DTaP/Tdap/Td Immunization Discontinued 2015, 07/31/2009, 02/06/2005, Additional history exists Human Papillomavirus (HPV) Immunization Completed 01/22/2016, 09/19/2015, 01/02/2015 TdaP Immunization Completed 01/22/2016 Meningococcal Immunization (ACWY) Completed 01/18/2021, 01/22/2016 Rotavirus Immunization Aged Out No lo nger eligible based on patient's age to complete this topic Insurance [employer] Care Teams Pickle Cutter Relationship Specialty Start Date End Date Isabella Peace, HECTOR, ROD PLACER [address] [place] [address] PCP - General Advanced Practice Nurse 02/04/23 Aleyda Hubbard APRN, CYBER SECURITY INSTRUCTOR [address] [place] [address] Nurse Practitioner Advanced Practice Nurse 03/26/23
--- OUTSIDE RECORDS SUMMARY | 2024-11-05 19:30 | XMS_ITS | Encounter Summary ---
Author Organization [facility] Address [address] [place] [address] Phone Care Team Providers Care Bookmobile Driver Name Role Phone Divina Wise MD Primary Care Provider + Miscellaneous, Not In File Primary Care Provider Unavailable No, Physician Primary Care Provider Racquel Bush MD Primary Care Provider [phone] Kim Castellanos DO Primary Care Provider + [phone] Isabella Peace NP Primary Care Provider [phone] Aleyda Hubbard Unavailable [phone] Encounter Details Date Type Department Care Team (Late st Contact Info) Description 12/12/2016 Orders Only [facility] Provider, MD Ann-Marie [address] [place] [id number] Social History Tobacco Use Types Packs/Day Years Used Date Smoking Tobacco: Never Assessed Comments Unknown Sex and Gender Information Value Date Recorded Sex Assigned at Not on file Legal Sex Female 7:40 PM MATCHER OFFBEARER Gender Identity Not on file Sexual Orientation Not on file documented as of this encounter Plan of Treatment Not on file documented as of this encounter Procedures Procedure Name Priority Date/Time Associated Diagnosis Comments PULMONARY - RESULT SCAN 12/12/2016 4:22 PM CDT documented in this encounter Results * PULMONARY - RESULT SCAN (12/12/2016 4:22 PM CDT) Anatomical Region Laterality Modality Other Narrative 12/12/2016 4:22 PM CDT Ordered by an unspecified provider. us Historical Provider MD Final Res ult documented in this encounter Visit Diagnoses Not on filedocumented in this encounter Additional Health Concerns Infection Onset Date Last Indicated Resolved Time COVID: Suspected 05/12/2020 05/12/2020 05/14/2020 12:00 PM MATCHER OFFBEARER Respiratory Infection (VERENICE), contact + droplet Comment:Automatically added due to negative COVID-19 result. 05/14/2020 05/14/2020 05/28/2020 3:0 5 AM MATCHER OFFBEARER COVID: Suspected 03/03/2021 03/03/2021 03/03/2021 5:04 PM CDT COVID: Suspected 03/04/2022 03/04/2022 03/04/2022 6:37 PM CDT documented as of this encounter Care Teams Bookmobile Driver Relationship Specialty Start Date End Date Divina Wise MD [address] [place] [address] [address] [place] [address] PCP - General 11/10/16 07/03/20 Miscellaneous, Not In File PCP - General 07/04/20 1 No, Physician PCP - General 07/16/20 08/01/20 Racquel Bush MD PCP - General Pediatrics 08/02/20 04/16/21 Kim Castellanos DO PCP - General Family Medicine 04/17/21 11/02/22 Isabella Peace NP [address] [place] [address] [address] [place] [id number] PCP - General Family Medicine 11/03/22 Aleyda Hubbard, SENIOR IT SPECIALIST [address] [place] [address] 03/27/23 documented as of this encounter
--- OUTSIDE RECORDS SUMMARY | 2024-11-05 19:30 | XMS_ITS | Clinical Summary ---
Author Organization [facility] osp[facility] Address [address] [place] [address] Care Team Providers Care Humanities Teacher Name Role Phone Isabella Peace CLIENT LIAISON Primary Care Provider Aleyda Hubbard MACHINE BRUSHER Unavailable Allergies Active Allergy Reactions Criticality Noted Date [...] 3 (three) months 1 mL 3 09/29/19 25 Active rizatriptan (MAXALT) 10 mg tabletIndications: Migraine without aura and without status migrainosus, not intractable TAKE ONE TABLET BY MOUTH ONCE DAILY NEEDED FOR MIGRAINE, MAY REPEAT IN 2 HOURS IF UNRESOLVED. DO NOT EXCEED 3 TABLETS (30 MG) IN 24 HOURS 30 tablet 1 10/05/19 25 Active rizatriptan (MAXALT) 10 mg tabletIndications: Migraine Take 1 tablet (10 mg total) by mouth once as needed for migraine May repeat in 2 hours if unresolved. Do not exceed 30 mg in 24 hours. 30 tablet 10/05/19 25 Active Active Problems Problem Noted Date Diagnosed Date Acute bilateral low back pain with left-sided sc iatica 09/14/2024 Assessment & Plan (09/14/2024 10:42 AM FIREARMS MODEL MAKER): -Acute, new -Start on Flexeril 5 [...] 05/26/2023 Assessment & Plan (07/10/2023 12:47 PM FIREARMS MODEL MAKER): -improving, but not at goal- patient reports she is still nauseous -possibly related to sertraline. Stop sertraline 50 mg daily and start escitalopram 5 mg daily for depression and anxiety -recommend patient follow up with GI -continue on Zofran 4 mg daily as needed Assessment & Plan (05/26/2023 1:01 PM FIREARMS MODEL MAKER): For the past 3 weeks with [...] 05/26/2023 Assessment & Plan (05/26/2023 12:57 PM FIREARMS MODEL MAKER): Lost about 5-10 lb over the past 3 weeks due to decreased appetite and nausea vomiting. We will plan for EGD for further evaluation of peptic ulcer disease gastritis, esophagitis. If all negative then could have possible functional disease such as gastroparesis or cannabinoid hyperemesis Hypokalemia 05/26/2023 Assessment & Plan (08/26/2023 12:00 PM FIREARMS MODEL MAKER): -improving, but not at goal -repeat potassium level in 1 week Assessment & Plan (05/26/2023 1:03 PM FIREARMS MODEL MAKER): Likely from dehydration and decreased oral intake, supplement per ordering physician Generalized abdominal pain 03/18/2023 Overview (12/21/2023): Onset Date: [id number] Bilateral lower abdominal cramping 01/29/2023 Assessment & Plan (01/29/2023 4:34 AM CDT): Acute problem- new problem with onset about 4 weeks Has been taken off control and implant removed- 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 Recommend heating pad at low setting prn Follow up with manager operations and procurement if cramping worsens Migraine without aura and wi thout status migrainosus, not intractable 01/27/2023 Assessment & Plan (08/12/2024 10:09 AM FIREARMS MODEL MAKER): -chronic, stable -continue on rizatriptan 10 mg once as needed for migraines -continue seeing Neurology Discussed avoiding all caffeine: no soda, tea, coffee, chocolate; no wine; no sharp cheeses; no processed meats like hot dogs or bologna; no MSG as found in british virgin islander food; no more than 1/2 banana a [...] or bologna; no MSG as found in brit[place] virgin islander food; no more than 1/2 banana a [...] headaches. Assessment & Plan (07/10/2023 12:47 PM FIREARMS MODEL MAKER): -chronic, stable -continue on rizatriptan 10 mg once as needed for migraines -continue seeing Neurology Discussed avoiding all caffeine: no soda, tea, coffee, chocolate; no wine; no sharp cheeses; no processed meats like hot dogs or bologna; no MSG as found in brit[place] virgin islander food; no more than 1/2 banana a [...] or bologna; no MSG as found in brit[place] virgin islander food; no more than 1/2 banana a [...] needed for migraines -referral placed to Dr. Paul OROSCO Neurology -follow up in 4 weeks Assessment [...] or bologna; no MSG as found in brit[place] virgin islander food; no more than 1/2 banana a [...] 12/28/23. Assessment & Plan (07/08/2023 3:17 PM FIREARMS MODEL MAKER): Counseling and education given on Depo-Provera including risks and side effects. Informed patient that Depo-Provera has been associated with a decrease in bone mineral mass known as osteopenia. Highly encouraged patient to supplement diet with calcium and vitamin-D daily - list of [id number] calcium supplements given. Patient should try to [...] time. Assessment & Plan (06/09/2023 1:32 PM FIREARMS MODEL MAKER): Discussed options such as coming off [...] buspirone. Assessment & Plan (09/14/2024 10:41 AM FIREARMS MODEL MAKER): -chronic, improving, but not at goal [...] counselor Assessment & Plan (08/12/2024 10:09 AM FIREARMS MODEL MAKER): -chronic, not at goal Patient has [...] counselor Assessment & Plan (08/26/2023 12:00 PM FIREARMS MODEL MAKER): -chronic, improving -patient has tried Prozac [...] counselor Assessment & Plan (07/10/2023 12:46 PM FIREARMS MODEL MAKER): Patient reiterated no suicidal thoughts at [...] Patient reports she can talk with her shoelace tipping machine operator Vinod for counseling. -recommend staying off [...] 11/03/2022 Assessment & Plan (09/14/2024 10:41 AM FIREARMS MODEL MAKER): -chronic, improving, but not at goal [...] counselor Assessment & Plan (08/12/2024 10:09 AM FIREARMS MODEL MAKER): -chronic, not at goal Patient has [...] counselor Assessment & Plan (08/26/2023 11:59 AM FIREARMS MODEL MAKER): -chronic, improving -patient has tried Prozac [...] counselor Assessment & Plan (07/10/2023 12:45 PM FIREARMS MODEL MAKER): Patient reiterated no suicidal thoughts at [...] Patient reports she can talk with her shoelace tipping machine operator Vinod for counseling. -recommend staying off [...] fat lifestyle and exercise for 150min/week recommended Encounters Date Type Department Care Team Description 09/28/2024 1:00 PM CDT Therapy [facility] [place] [address] Alex Mcgowan, PT Acute bilateral low back pain with left-sided sciatica 09/28/2024 11:00 AM CDT Office Visit [facility] [address] [place] [address] Ila Haynes DO Encounter for annual routine gynecological examination (Primary Dx); Need for HPV vaccination; Encounter for counseling regarding contraception 09/28/2024 Plan of Care Documentation [facility] Physical Therapy - [place] [address] [place] [address] 09/15/2024 Orders Only [facility] Primary [facility] at [address] [place] [address] Isabella Peace NP Acute bilateral low back pain with left-sided sciatica (Primary Dx) 09/14/2024 10:00 AM FIREARMS MODEL MAKER Office Visit [facility] Primary Care at [address] [place] [address] Isabella Peace NP Generalized anxiety disorder (Primary Dx); Mild episode of recurrent major depressive disorder; Acute bilateral low back pain with left-sided sciatica 09/14/2024 Orders Only [facility] Primary Care at [address] [place] [address] Isabella Peace, JUAN M Acute bilateral low back pain with left-sided sciatica (Primary Dx) 08/12/2024 9:30 AM FIREARMS MODEL MAKER Office Visit [facility] Primary [facility] at [address] [place] [address] Isabella Peace, JUAN M Generalized anxiety disorder (Primary Dx); Mild episode of recurrent major depressive disorder; Migraine without aura and without status migrainosus, not intractable from Last 3 Months Immunizations Immunization Administration Dates Next Due DTaP [...] 13 11/17/2005 ,02/06/2005,2004,09/19 Tdap 01/22/2016 Varicella 03/08/2008 Surgical History Surgery Date Site/Laterality Comments DENTAL SURGERY Medical History Medical History Date Comments Right foot drop GERD (gastroesophageal reflux disease) Eczema Seasonal allergies Anxiety Depression Family History Medical History Relation Name Comments Carpal tunnel syndrome Maternal Grandfather Depression Mother Angelina Gonzalez Hypertension Mother Angelina Gonzalez Hypothyroidism Mother Angelina Gonzalez Other cancer Neg Hx no breast, travel counselor automobile club, or colon cancers. Relation Name Status Comments Father Alive Maternal Grandfather Maternal Grandmother Mother Angelina Gonzalez Alive Social History Tobacco Use Types Packs/Day [...] on file Legal Sex Female 7:40 PM FIREARMS MODEL MAKER Gender Identity Not on file Sexual Orientation Not on file Occupation Industry Job Start Date Job End Date Not on file Not on file Not on file Not on file Obstetrics History Para Term AB IAB SAB Ectopic Multiple Livin g Live Births 0 0 0 0 0 0 0 0 0 0 0 Last Filed Vital Signs Vital Sign Reading Time Taken Comments Blood Pressure 108/60 09/28/2024 10:58 AM CDT Pulse 74 09/14/2024 9:43 AM FIREARMS MODEL MAKER Temperature 36.5 C (97.7 F) 09/14/2024 9:43 AM FIREARMS MODEL MAKER Respiratory Rate 14 09/14/2024 9:43 AM FIREARMS MODEL MAKER Oxygen Saturation 99% 09/14/2024 9:43 AM FIREARMS MODEL MAKER Inhaled Oxygen Concentration - - Weight 53.1 kg (117 lb) 09/28/2024 10:58 AM CDT Height 170.2 cm (5' 7 ) 09/28/2024 10:58 AM CDT Body Mass Index 18.32 09/28/2024 10:58 AM CDT Plan of Treatment Health Maintenance Due Date Last Done Comments Hepatitis C Screening 2004 Pneumococcal vaccine <65 (1 of 1 - PPSV23) 2010 11/17/2005, 02/06/2005, 2004, Additional history exists Meningococcal B Vaccine (2 o f 2 - Trumenba SCDM 2-dose series) 07/21/2021 01/18/2021 Chlamydia and Gonorrhea (GC/ CT) Screening 11/23/2024 11/24/2023, 05/07/2023, 11/17/2022 Influenza Vaccine (Season Ended) 2025 07/10/2023, 05/27/2021, 05/09/2019, Additional history exists Depression Screening 09/14/2025 09/14/2024, 08/12/2024, 12/21/2023, Additional history exists Regular Well Visit/Exam 18-64 09/28/2025, 11/24/2023, 11/06/2023, Additional history exists DTaP/Tdap/Td Vaccine (6 - Td or Tdap) 01/21/2026 01/22/2016, 07/31/2009, 02/06/2005, Additional history exists Hepatitis B Screening Completed 02/06/2005 , 2004, 2004 Varicella Vaccines Completed 07/31/2009, 03/08/2008 Meningococcal Vaccine Completed 01/18/2021, 016 HPV Vaccines Completed 09/28/2024, 01/10, 09/19/2015, Additional history exists Procedures Procedure Name Priority Date/Time Associated Diagnosis Comments N. GONORRHOEAE/C. TRACHOMATIS AMPLIFICATION Routine 11/24/2023 11:30 AM CDT from Last 3 Months or Most Recently Relevant to Health Maintenance Results * N. gonorrhoeae/C. trachomatis Amplification Urine (11/24/2023 11:30 AM CDT) C. trachomatis Not Detected [facility] Comment:Testing performed by : [facility], [address] [facility], [place]., [address] N. gonorrhoeae Not Detected CE RNTESSA STEWART (SAMSON) Comment: Interpretive Data This assay detects Chlamydia trachomatis and Neisseria gonorrhoeae by nucleic acid amplification testing (NAAT). This assay has been cleared by the [place] Food and Drug administration. The performance characteristics of this test have been verified by the [facility] Molecular Infectious Disease laboratory. The performance characteristics of this test have not been evaluated in individuals less than 14 years of age. Current Interpretive Data was last revised on 2023. Testing performed by: [facility], [address] [place]., [address] Urine 11/24/2023 11:3 0 AM CDT 11/24/2023 4:48 PM CDT us Maggie Blanc NP LAB MICROBIOLOGY - GENERAL ORDER NURA Final Result JUAN STEWART (WINNETT) [address] [facility] [place] [address] [facility] from Last 3 Months or Most Recently Relevant to Health Maintenance Insurance [facility] [employer] Address: [facility] [id number] [place] [address] [facility] [employer] Address: [facility] [id number] [place] [phone] Advance Directives For more information, please contact: [phone] * Full Code (Latest Code Status on File) Date Activated Date Inactivated Comments 06/22/2023 1:20 PM 06/22/2023 8:00 PM Care Teams Humanities Teacher Relationship Specialty Start Date End Date Isabella Peace NP [address] [facility] [place] [address] PCP - General Family Medicine 11/03/22 Aleyda Hubbard, [facility] [address] [place] [address] 03/27/23
[2024-11-05 19:31] VITALS: BP 107/73; PULSE 59; RESP 20; TEMP 36.7; O2SAT 100
--- NOTE | 2024-11-05 19:46 | ED_ITS ---
HPI - General Adult General Chief complaint: Headache Stated complaint: Sinus Problem Source: patient and family Mode of arrival: ambulatory Limitations: no limitations History of Present Illness HPI narrative: Patient presents for evaluation of sinus symptoms. Symptom onset yesterday. She reports frontal maxillary sinus tenderness with green nasal drainage. She has a history of migraines and her symptoms caused her to have migraine symptoms as well. She tried taking Tylenol, ibuprofen, Benadryl, rizatriptan for her symptoms without much relief. She denies any fever, chills, vomiting, neurological changes, cough or SOB. No recent sick contacts to her knowledge. Related Data Home Medications ?Medication ?Instructions ?Recorded ?Confirmed ?Last Taken ?Type cetirizine 10 mg tablet 10 mg PO DAILY PRN Allergy Symptoms 02/26/21 10/30/22 Unknown History omeprazole 20 mg capsule,delayed 20 mg PO .PRN 03/25/22 10/30/22 Unknown History release rizatriptan 10 mg tablet mg 11/05/24 Unknown History Allergies Allergy/AdvReac Type Severity Reaction Status Date / Time ibuprofen AdvReac Intermediate Abdominal Verified 11/05/24 19:40 Pain, hives Review of Systems Review of Systems: CONSTITUTIONAL: Denies fever, chills, or sweats. EYES: Denies visual changes, redness, or discharge. ENT: Reports sinus congestion, bilateral otalgia, frontal and maxillary sinus pressure and green nasal drainage. CARDIOVASCULAR: Denies chest pain, palpitations, or edema. RESPIRATORY: Denies cough or dyspnea. GASTROINTESTINAL: Denies abdominal pain, nausea, vomiting, or diarrhea. GENITOURINARY: Denies dysuria or hematuria. SKIN: Denies rash or itching. MUSCULOSKELETAL: Denies back pain, joint pain, or myalgia. NEUROLOGIC: Reports headache. Denies numbness, dizziness, or weakness. PSYCHIATRIC: Denies anxiety or depression. [facility] Past Medical History Medical History Anxiety Depression Migraine Surgical History Surgical History History of oral surgery Family History Family History Father Depression Anxiety Heart problem Mother Hypertension Anxiety Depression Thyroid disorder Grandparent Hypertension Heart problem Thyroid disorder Social History Social History Smoking status: Current some day smoker Tobacco type: e-cigarettes/vaping Alcohol intake: never Substance use: current Substance use type: marijuana Lack of Transportation: No Lack of Food: Never True Current Housing: I Have Housing Concerned About Future Housing: No Difficulty Paying Gas/Electric Bills: No Difficulty Paying for Meds: No Currently Unemployed: No Education: High School Diploma/GED Difficulty w/ Childcare or Family Care: No Living arrangements: with family Occupation/Education: student Gender identity (if verbalized by the patient): Female Exam Narrative: GENERAL: Well-appearing, well-nourished, and in no acute distress. HEAD: Normocephalic, atraumatic. EYES: PERRLA and EOMI. ENT: Nares clear, no rhinorrhea or epistaxis. Mucous membranes moist. Oropharynx without tonsillar hypertrophy exudate or other lesions. Bilateral TMs pearly barlow nonbulging. There is frontal and bilateral maxillary sinus tenderness. NECK: Supple. No adenopathy or masses. No carotid bruits or JVD CHEST: Clear to auscultation. No respiratory distress. No wheezes rales or rhonchi HEART: Regular rate and rhythm. No murmur heard. Normal peripheral pulses. ABDOMEN: Soft, nontender, nondistended, normal active bowel sounds. EXTREMITIES: Normal range of motion. No edema. SKIN: Warm, dry, no rash. NEURO: No focal deficits. Alert and oriented x3. PSYCH: Normal mood and affect. Course Course Emergency Course: This is a 19-year-old female who presented for evaluation sinus symptoms. She meets criteria for bacterial sinusitis based upon mucopurulent nature of discharge. Will dc with augmentin. Increase fluid intake. OTC agents for symptom management. Follow up with primary provider. Go to the ER for worsening symptoms. Pt in agreement with plan of care. Level of Care: Express Care Visit Vital Signs Vital signs: Vital Signs Temperature 36.7 C 11/05/24 19:31 Pulse Rate 59 L 11/05/24 19:31 Respiratory Rate 20 11/05/24 19:31 Blood Pressure 107/73 11/05/24 19:31 Pulse Oximetry 100 11/05/24 19:31 Oxygen Delivery Room Air 11/05/24 19:31 Temperature 36.7 C 11/05/24 19:31 Pulse Rate 59 L 11/05/24 19:31 Respiratory Rate 20 11/05/24 19:31 Blood Pressure 107/73 11/05/24 19:31 Pulse Oximetry 100 11/05/24 19:31 Oxygen Delivery Room Air 11/05/24 19:31 Medical Decision Making Vital Signs Vital Signs: Vital Signs Temperature 36.7 C 11/05/24 19:31 Pulse Rate 59 L 11/05/24 19:31 Respiratory Rate 20 11/05/24 19:31 Blood Pressure 107/73 11/05/24 19:31 Pulse Oximetry 100 11/05/24 19:31 Oxygen Delivery Room Air 11/05/24 19:31 Temperature 36.7 C 11/05/24 19:31 Pulse Rate 59 L 11/05/24 19:31 Respiratory Rate 20 11/05/24 19:31 Blood Pressure 107/73 11/05/24 19:31 Pulse Oximetry 100 11/05/24 19:31 Oxygen Delivery Room Air 11/05/24 19:31 Discharge Plan Discharge Clinical Impression: Sinusitis Patient Disposition: Home Condition: Stable Instructions: Antibiotic Form, Sinusitis (ED) Patient Language: Colombian Prescriptions: New amoxicillin-pot clavulanate 875-125 mg tablet 1 tablet PO Q12H Qty: 20 0RF No Action rizatriptan 10 mg tablet omeprazole 20 mg capsule,delayed release(DR/EC) 20 mg PO .PRN lamotrigine 50 mg tablet extended release 24hr 50 mg PO DAILY Qty: 90 1RF cetirizine 10 mg tablet 10 mg PO DAILY PRN (Reason: Allergy Symptoms) sertraline 100 mg tablet 100 mg PO DAILY Qty: 90 1RF ondansetron HCl 4 mg tablet 4 mg PO Q6H PRN (Reason: nausea and vomiting) Qty: 20 0RF medroxyprogesterone 150 mg/mL suspension 150 mg IM [id number] Qty: 1 2RF Follow-up/Referrals: Tru Glass MD [Physician] - Time of Disposition: 19:45
== END 2024-11-05 19:49 | disposition home or self-care (01) ==
PROVIDERS: Emergency Provider Nurse Practitioner
DX: J32.9 Chronic sinusitis, unspecified (principal); F17.290 Nicotine dependence, other tobacco product, uncomplicated; F12.90 Cannabis use, unspecified, uncomplicated; F41.9 Anxiety disorder, unspecified; F32.A Depression, unspecified
CPT/HCPCS: 99213; G0463